=== PATIENT | female | born 1975 | race Caucasian/White ===

== ENCOUNTER → 2024-02-04 10:45 | Outpatient (BNVA) | payer OTHER, SELFPAY | PROVIDERS: Visit Provider Physician Assistant Medical | DX: S90.32XA Contusion of left foot, initial encounter (principal); W50.0XXA Accidental hit or strike by another person, initial encounter; X50.1XXA Overexertion from prolonged static or awkward postures, initial encounter | CPT/HCPCS: 73630; 99204 ==

== ENCOUNTER → 2024-02-07 12:58 | Outpatient (BNVA) | payer OTHER, SELFPAY | PROVIDERS: Visit Provider Physician Assistant Medical | DX: S90.32XA Contusion of left foot, initial encounter (principal); S93.402A Sprain of unspecified ligament of left ankle, initial encounter; X50.0XXA Overexertion from strenuous movement or load, initial encounter; X50.1XXA Overexertion from prolonged static or awkward postures, initial encounter | CPT/HCPCS: 99213 ==

== ENCOUNTER → 2024-02-10 10:04 | Outpatient (BNVA) | payer OTHER, SELFPAY | PROVIDERS: Visit Provider Physician Assistant Medical | DX: S90.32XA Contusion of left foot, initial encounter (principal); S93.402A Sprain of unspecified ligament of left ankle, initial encounter; W50.0XXA Accidental hit or strike by another person, initial encounter; W50.1XXA Accidental kick by another person, initial encounter | CPT/HCPCS: 99213 ==

== ENCOUNTER → 2024-02-14 13:18 | Outpatient (BNVA) | payer OTHER, SELFPAY | PROVIDERS: Visit Provider Physician Assistant Medical | DX: S90.32XA Contusion of left foot, initial encounter (principal); S93.402A Sprain of unspecified ligament of left ankle, initial encounter; W50.0XXA Accidental hit or strike by another person, initial encounter; X50.1XXA Overexertion from prolonged static or awkward postures, initial encounter | CPT/HCPCS: 99213 ==

== ENCOUNTER → 2024-02-27 11:12 | Outpatient (BNVA) | payer OTHER, SELFPAY | PROVIDERS: Visit Provider Physician Assistant Medical | DX: S90.32XA Contusion of left foot, initial encounter (principal); S93.402A Sprain of unspecified ligament of left ankle, initial encounter; X50.0XXA Overexertion from strenuous movement or load, initial encounter; X50.1XXA Overexertion from prolonged static or awkward postures, initial encounter | CPT/HCPCS: 99213 ==